=== PATIENT | male | born 1965 | race Caucasian/White ===

== ENCOUNTER → 2017-08-21 | Outpatient (CLI) | payer BC ==
[~2017-08-21] MED LIST: ALLP300T PO; ATEN1TAB4 PO; BNZ20T PO; DORZ10DR19 OU; GLIP10TA13 PO; METF-380 PO; PGLT30T PO; PSEU240T5 PO; SIMV10TA3 PO; VRP80T PO
--- NOTE | 2017-08-21 12:06 | Diagnostic Imaging Report ---
PROCEDURE: US abdomen complete. TECHNIQUE: Multiple real-time grayscale images were obtained over the abdomen in various projections. INDICATION: Right upper quadrant pain. The liver is enlarged at approximately 22 cm. There appears to be increased echogenicity throughout the liver suggestive of hepatic steatosis. No discrete liver mass is identified. The gallbladder is without stones or sludge. No wall thickening or biliary duct dilatation is seen. The pancreas was obscured. The spleen is normal in size. Aorta and IVC are secured. The right left kidneys are unremarkable. No definite ascites is seen. IMPRESSION: 1. Hepatomegaly and hepatic steatosis. No other significant abnormality is detected. Dictated by: Dictated on workstation # [id number]
== END ==
LOC: RAD 10:51
PROVIDERS: ATTEND Nurse Practitioner Family
DX: K76.0 Fatty (change of) liver, not elsewhere classified (principal)
CPT/HCPCS: 76700